=== PATIENT | female | born 2000 | race Two or more races ===

== ENCOUNTER 2020-06-24 11:37 | Emergency (ER) | payer OTHER ==
[2020-06-24 11:51] VITALS: BMI 29.2
[2020-06-24] MEDS ORDERED: ACETAMINOPHEN 1000 MG/100 ML VIAL (NON FORMULARY) IVPB ONE (12:06)
[2020-06-24] MEDS ORDERED: SODIUM CHLORIDE 1,000 ML IV STA ×2 (12:07→13:29)
--- NOTE | 2020-06-24 12:17 | PDOC ---
History of Present Illness - General Chief Complaint: SIRS, Suspected/Possible Stated Complaint: FEVER/ SOB/ WEAKNESS Time Seen by Provider: 06/24/20 11:44 History Source: Patient - History of Present Illness Timing/Duration: reports: other Past History - Medical History Allergies/Adverse Reactions: Allergies Allergy/AdvReac Type Severity Reaction Status Date / Time No Known Allergies Allergy Verified 06/24/20 12:11 Home Medications: Ambulatory Orders Ibuprofen [Motrin -] 600 mg PO QID #28 tablet 06/24/20 Sulfamethoxazole/Trimethoprim [Bactrim Ds -] 1 tab PO BID #14 tablet 06/24/20 - Reproductive History Is Patient Now?: No - Psycho-Social/Smoking History Smoking History: Unknown if ever smoked - Substance Abuse Hx (Audit-C & DAST Scrn) How often the patient has a drink containing alcohol: Never Score: In Men: 4 or > Positive; In Women: 3 or > Positive: 0 Screen Result (Pos requires Nsg. Audit-10AR): Negative In the last yr the pt used illegal drug/Rx for NonMed reason: No Score: Yes response is considered Positive: 0 Screen Result (Positive result requires Nsg. DAST-10): Negative Review of Systems - Review of Systems Constitutional: Yes: Chills, Fever, Malaise HEENTM: No: Ear Pain, Ear Discharge Respiratory: No: Cough, Shortness of Breath Cardiac (ROS): No: Chest Pain ABD/GI: No: Constipated, Diarrhea, Nausea, Vomiting, Abdominal cramping : Yes: Flank Pain. No: Burning, Dysuria, Hematuria *Physical Exam - Vital Signs Last Vital Signs Temp Pulse Resp BP Pulse Ox 140 H 20 110/46 L 94 L 06/24/20 11:49 06/24/20 11:49 06/24/20 11:49 06/24/20 11:49 - Physical Exam General Appearance: Yes: Appropriately Dressed. No: Apparent Distress HEENT: positive: Normal Voice Neck: positive: Supple Respiratory/Chest: positive: Lungs Clear, Normal Breath Sounds Cardiovascular: positive: S1, S2, Tachycardia Gastrointestinal/Abdominal: positive: Soft. negative: Tender Musculoskeletal: negative: CVA Tenderness Integumentary: positive: Dry, Warm Neurologic: positive: Fully Oriented, Alert, Normal Mood/Affect ED Treatment Course - LABORATORY CBC & Chemistry Diagram: 06/24/20 12:06 06/24/20 12:06 Medical Decision Making - Medical Decision Making 06/24/20 12:14 19 yo F, no sig hx, here w/ R flank pain that started 3 days ago and at some point developed diffuse body aches w/ subj fever and chills. Was unable to go to work this am due to malaise. No cough, loss of taste/smell, sob, CP, dysuria, n/v. No known sick contact or recent travel see exam ?viral syndrome, r/o covid and pyelo Well sebas and alert but tachy to 140 w/ T of 103.1F -IVF -[facility] -labs -covid PCR -CXR 06/24/20 13:20 CBC unremarkable w/ +bld, prot and > 8K edwin on UA! Ucx sent, Will give 1 gram of rocephin for possible pyelo. No prior sensitivity on record here. Rpt T 100.3 w/ HR 101 and sating 97% on RA. pt well sebas. 06/24/20 14:20 Final T 99F w/ HR 96 and sating 97% on RA. Pt reports feeling sig better and well enough to go home. No n/v. Dc w/ bactrim and motrin. Strict return precautions given Discharge - Discharge Information Problems reviewed: Yes Clinical Impression/Diagnosis: Right flank pain, Generalized body aches Fever Qualifiers: Fever type: unspecified Qualified Code(s): R50.9 - Fever, unspecified Condition: Improved Disposition: HOME - Additional Discharge Information Prescriptions: Sulfamethoxazole/Trimethoprim [Bactrim Ds -] 1 tab PO BID #14 tablet Ibuprofen [Motrin -] 600 mg PO QID #28 tablet - Follow up/Referral - Patient Discharge Instructions Patient Printed Discharge Instructions: Kidney Infection Additional Instructions: You were treated for a possible UTI/kidney infection Take medications as directed Rest and hydrate as well! We did send covid PCR and will call you with results in 1-3 days - Post Discharge Activity Work/Back to School Note: Back to Work
[2020-06-24] MEDS ORDERED: ACETAMINOPHEN INJECTION 100 ML IVPB ONE (12:22)
[2020-06-24 12:42] LABS: BASO % 0.1 % (0-2.0); EOS % 0.2 % (0-4.5); HEMATOCRIT 39.3 % (32.4-45.2); LYMPH % 9.7 % (8-40); MCH 29.7 pg (25.7-33.7); MCHC 33.2 g/dl (32.0-36.0); MEAN CELL VOLUME 89.5 fl (80-96); MONO % 4.8 % (3.8-10.2); NEUT % 85.2 % (42.8-82.8); PLATELET COUNT 184 K/MM3 (134-434); RBC 4.39 M/mm3 (3.60-5.2); RDW 13.2 % (11.6-15.6); WHITE BLOOD COUNT 8.2 K/mm3 (4.0-10.0)
[2020-06-24 13:06] LABS: HCG,QUALITATIVE URINE Negative
[2020-06-24 13:13] LABS: PH,URINE 5.5 (5.0-8.0); URINE APPEARANCE Clear; URINE BILIRUBIN Negative (NEGATIVE); URINE COLOR Yellow; URINE GLUCOSE (UA) Negative (NEGATIVE); URINE KETONE Negative (NEGATIVE); URINE LEUK ESTERASE 1+ (NEGATIVE); URINE NITRITE Negative (NEGATIVE); URINE PROTEIN 1+ (NEGATIVE); URINE UROBILINOGEN 0.2 mg/dL (0.2-1.0)
[2020-06-24 13:16] LABS: EPI CELLS 47.9 /uL (0-25.1); HYALINE CASTS 7.45 /uL (0-3.1); URINE BACTERIA 8213.8 /uL (0-1359); URINE RBC 30.9 /uL (0-23.9); URINE WBC 517.4 /uL (0-25.8)
[2020-06-24] MEDS ORDERED: CEFTRIAXONE 1 GM in DEXTROSE 5%-WATER - 100 ML IVPB ONE (13:19)
[2020-06-24] MEDS ORDERED: cefTRIAXone SODIUM 1 GM VIAL ONE (13:21)
[2020-06-24 13:42] LABS: ALBUMIN 3.8 g/dl (3.4-5.0); BILIRUBIN,TOTAL 0.6 mg/dL (0.2-1); BLOOD UREA NITROGEN 10.5 mg/dL (7-18); CALCIUM 8.7 mg/dL (8.5-10.1); CREATININE 0.9 mg/dL (0.55-1.3); TOT PROT 7.7 g/dl (6.4-8.2)
[2020-06-24 14:23] VITALS: BP 132/76; PULSE 77; TEMP 100.3
== END 2020-06-24 14:25 | disposition home or self-care (01) ==
LOC: JER 11:37
PROC: 3E03329 Introduction of Other Anti-infective into Peripheral Vein, Percutaneous Approach (ICD-10-PCS; principal; 2020-06-24)
PROC: 3E033GC Introduction of Other Therapeutic Substance into Peripheral Vein, Percutaneous Approach (ICD-10-PCS; 2020-06-24)
PROC: 3E0337Z Introduction of Electrolytic and Water Balance Substance into Peripheral Vein, Percutaneous Approach (ICD-10-PCS; 2020-06-24)
DX: R10.9 Unspecified abdominal pain (principal); R50.9 Fever, unspecified
CPT/HCPCS: 36415; 71045-TC-FY; 80053; 81003; 84703; 85025; 87086; 87186; 99284-25; J0131; U0003

== ENCOUNTER 2023-08-07 11:36 | Emergency (ER) | payer OTHER ==
[2023-08-07 11:46] VITALS: BP 135/87; PULSE 98; RESP 18; TEMP 98.4; BMI 38.0
== END 2023-08-07 13:17 | disposition home or self-care (01) ==
LOC: JERFT 11:36
DX: R05.1 Acute cough (principal); R09.81 Nasal congestion; H92.01 Otalgia, right ear; J02.9 Acute pharyngitis, unspecified; R07.89 Other chest pain; J00 Acute nasopharyngitis [common cold]; R09.82 Postnasal drip
CPT/HCPCS: 71046-TC-FY; 99283-25